=== PATIENT | female | born 1955 | race Caucasian/White ===

== ENCOUNTER → 2023-08-27 10:55 | Outpatient (REF) | payer OTHER, SELFPAY | LOC: WDC 10:55 | PROVIDERS: ATTENDING PHYSICIAN Family Medicine | DX: Z12.31 Encounter for screening mammogram for malignant neoplasm of breast (principal) | CPT/HCPCS: 77063; 77067 ==

== ENCOUNTER → 2024-07-08 13:46 | Outpatient (REF) | payer OTHER, SELFPAY | LOC: RAD 13:46 | PROVIDERS: ATTENDING PHYSICIAN Family Medicine | DX: Z13.820 Encounter for screening for osteoporosis (principal) | CPT/HCPCS: 77080 ==

== ENCOUNTER → 2024-07-22 14:13 | Outpatient (REF) | payer OTHER, SELFPAY | LOC: RAD 14:13 | PROVIDERS: ATTENDING PHYSICIAN Physician Assistant Medical | DX: J44.1 Chronic obstructive pulmonary disease with (acute) exacerbation (principal) | CPT/HCPCS: 71046 ==

== ENCOUNTER → 2024-08-31 12:49 | Outpatient (REF) | payer OTHER, SELFPAY | LOC: WDC 12:49 | PROVIDERS: ATTENDING PHYSICIAN Family Medicine | DX: Z12.31 Encounter for screening mammogram for malignant neoplasm of breast (principal) | CPT/HCPCS: 77063; 77067 ==